=== PATIENT | female | born 1960 | race Caucasian/White ===

== ENCOUNTER → 2017-06-03 | Outpatient (CLI) | payer OTHER ==
[~2017-06-03] MED LIST: ASP81TEC PO; CHOL100011 PO; ESTR1TAB24 PO; HYDR-3583 PO; LISI1TAB PO; LVT.1T PO; OMEG1CAP51 PO
--- NOTE | 2017-06-03 19:00 | Diagnostic Imaging Report ---
INDICATION: Digital screening mammography was obtained with The current study was also evaluated with a Computer Aided Detection (CAD) system, as well as 3-D tomosynthesis. COMPARISON: 05/23/2016. FINDINGS: Scattered fibroglandular densities are again seen. There is no mass or suspicious calcification. IMPRESSION: Stable screening mammogram. No malignancy. Bi-RADS Category 1. ACR BI-RADS Category 1: Negative. Result letter will be mailed to the patient. Note: At least 10% of breast cancer is not imaged by mammography. Dictated on workstation # [id number]
== END ==
LOC: RAD 10:36
PROVIDERS: ATTEND Nurse Practitioner Family
DX: Z12.31 Encounter for screening mammogram for malignant neoplasm of breast (principal)
CPT/HCPCS: 77067

== ENCOUNTER → 2018-08-07 | Outpatient (CLI) | payer BC, OTHER ==
--- NOTE | 2018-08-07 19:18 | Diagnostic Imaging Report ---
INDICATION: Routine screening. Comparison is made with prior mammogram from 06/03/2017 and 05/23/2016. 2-D and 3-D bilateral screening mammography was performed with computer-aided detection (CAD) system. FINDINGS: Scattered fibronodular densities are identified bilaterally. There are benign calcifications bilaterally. Fibronodular parenchymal pattern appears to be stable. No dominant mass or malignant-appearing microcalcifications are seen. The axillae are unremarkable. IMPRESSION: No mammographic features suspicious for malignancy are identified. ACR BI-RADS Category 2: Benign findings. Result letter will be mailed to the patient. Note: At least 10% of breast cancer is not imaged by mammography. Dictated by: Dictated on workstation # [id number]
== END ==
LOC: RAD 07:17
PROVIDERS: ATTEND Family Medicine
DX: Z12.31 Encounter for screening mammogram for malignant neoplasm of breast (principal)
CPT/HCPCS: 77067

== ENCOUNTER → 2020-02-19 | Outpatient (CLI) | payer BC ==
--- NOTE | 2020-02-19 13:31 | Diagnostic Imaging Report ---
EXAM: Digital mammogram, bilateral screening. COMPARISON: This study was compared to the prior exams of 08/07/2018, 06/03/2017 and 05/23/2016. There are no current complaints. The current study was also evaluated with a Computer Aided Detection (CAD) system. FINDINGS: There are scattered fibroglandular densities in both breasts which could obscure a lesion. Overall, there does not appear to have been any significant change when compared to the prior exam. No primary or secondary sign of malignancy is noted. IMPRESSION: There is no radiographic evidence for malignancy. ACR category 1 ACR BI-RADS Category 1: Negative. Result letter will be mailed to the patient. Note: At least 10% of breast cancer is not imaged by mammography. Dictated by: Dictated on workstation # [id number]
== END ==
LOC: RAD 07:31
PROVIDERS: ATTEND Family Medicine
DX: Z12.31 Encounter for screening mammogram for malignant neoplasm of breast (principal)
CPT/HCPCS: 77063; 77067

== ENCOUNTER → 2021-04-28 | Outpatient (CLI) | payer BC ==
--- NOTE | 2021-04-28 13:57 | Diagnostic Imaging Report ---
INDICATION: Routine screening. Comparison is made with prior mammogram from 02/19/2020 and 08/07/2018. 2-D and 3-D bilateral screening mammography was performed with CAD. Both breasts show parenchymal heterogeneity and increased density, limiting the sensitivity of mammography. Patient reportedly complains of a lump in the upper and outer aspect of the right breast posterior depth. This is marked with a BB marker. There are scattered benign calcifications throughout both breasts. No discrete mass or malignant appearing microcalcifications are seen. Specifically, no mass at the area of palpable abnormality in the upper outer right breast is identified. Axillae are unremarkable. IMPRESSION: BI-RADS Category 2 No mammographic features suspicious for malignancy are identified. Continued close clinical and self breast exams recommended to confirm stability of the palpable abnormality. If this persists, ultrasound of this area could be performed. ACR BI-RADS Category 2: Benign findings. Result letter will be mailed to the patient. Note: At least 10% of breast cancer is not imaged by mammography. Dictated by: Dictated on workstation # [id number]
== END ==
LOC: RAD 04-27 07:45
PROVIDERS: ATTEND Family Medicine
DX: Z12.31 Encounter for screening mammogram for malignant neoplasm of breast (principal)
CPT/HCPCS: 77063; 77067

== ENCOUNTER 2023-08-22 05:41 | Outpatient (CLI) | payer BC ==
[~2023-08-22] VITALS: Ht 167.6 cm; Wt 95.5 kg
[2023-08-22] MEDS ORDERED: LISI10TA25 PO (14:35)
[2023-08-22] MEDS ORDERED: POTA10CA84 PO (14:35)
[2023-08-22] MEDS ORDERED: TIRZ7.5P SQ (14:35)
[2023-08-22] MEDS ORDERED: EZET10TA49 PO (14:35)
[2023-08-22] MEDS ORDERED: FRSM10B60 PO (14:35)
[2023-08-22] MEDS ORDERED: CITA10TA9 PO (14:36)
== END 2023-08-22 15:07 ==
LOC: PREOP 05:41
PROVIDERS: ATTEND Surgery
DX: Z01.818 Encounter for other preprocedural examination (principal)

== ENCOUNTER 2023-08-29 10:18 | Day surgery (SDC) | payer BC ==
[2023-08-29] VITALS (11 sets, daily range): BP systolic 130–151; BP diastolic 75–87
[~2023-08-29] VITALS: Ht 167.6 cm; Wt 95.5 kg
[~2023-08-29 10:18] MED LIST changes: +CITA10TA9 PO; +EZET10TA49 PO; +FRSM10B60 PO; +LISI10TA25 PO; +POTA10CA84 PO; +TIRZ7.5P SQ
[2023-08-29] MEDS ORDERED: ceFAZolin INJECTION 2,000 MG in NS (IVPB) 50 ML 50 ML IV ONE (10:45)
[2023-08-29] MEDS ORDERED: LACTATED RINGERS 1,000 ML 1,000 ML IV PRN (10:45)
[2023-08-29] MEDS ORDERED: NS (IVPB) 50 ML 50 ML ONE (11:21)
[2023-08-29] MEDS ORDERED: ceFAZolin INJECTION 2,000 MG ONE (11:21)
--- NOTE | 2023-08-29 11:41 | Progress Note-Pre Operative ---
Pre-Operative Progress Note Date H&P Reviewed: Aug 29, 2023 Time H&P Reviewed: 11:40 History & Physical: H&P Reviewed, Patient Examed, No changes noted Pre-Operative Diagnosis: right shoulder mass INGRID GREEN DO Aug 29, 2023 11:41
[2023-08-29] MEDS ORDERED: LIDOCAINE 2% w/EPI 1:100,000 20 ML VIAL ONE (12:27)
[2023-08-29] MEDS ORDERED: fentaNYL INJECTION 100 MCG/2 ML VIAL ONE (12:35)
[2023-08-29] MEDS ORDERED: ONDANSETRON INJECTION 4 MG/2 ML (SDV) ONE (12:35)
[2023-08-29] MEDS ORDERED: SEVOFLURANE (ULTANE) 15 ML INHAL SOLN ONE ×2 (12:35→13:58)
[2023-08-29] MEDS ORDERED: LIDOCAINE PF 2% 5 ML VIAL ONE (12:35)
[2023-08-29] MEDS ORDERED: proPOfol INJECTION 200 MG/20 ML VIAL IV ONE (12:35)
[2023-08-29] MEDS ORDERED: MIDAZOLAM INJ 2 MG/2 ML VIAL ONE (12:35)
[2023-08-29] MEDS ORDERED: ROCURONIUM 50 MG/5 ML VIAL IV ONE (13:25)
--- NOTE | 2023-08-29 13:55 | Anesthesia-General Post-Op ---
General Patient Condition Mental Status/LOC: Same as Preop Cardiovascular: Satisfactory Nausea/Vomiting: Absent Respiratory: Satisfactory Pain: Controlled Complications: Absent Post Op Complications Complications None Follow Up Care/Instructions Patient Instructions None needed. Anesthesia/Patient Condition Patient Condition Patient is doing well, no complaints, stable vital signs, no apparent adverse anesthesia problems. No complications reported per nursing. JOSE LIPSCOMB HUSBANDRY TECHNICIAN Aug 29, 2023 13:55
--- NOTE | 2023-08-30 17:14 | OPERATIVE REPORT ---
DATE OF SERVICE: 08/29/2023 PREOPERATIVE DIAGNOSIS: Right shoulder mass. POSTOPERATIVE DIAGNOSIS: Right shoulder mass. PROCEDURE: Excision of right shoulder mass, 9.5 x 7 cm. SURGEON: Ingrid Dumont DO ANESTHESIA: General. ESTIMATED BLOOD LOSS: Minimal. COMPLICATIONS: None. INDICATIONS: The patient is a 63-year-old female with a right shoulder mass. She understands risks and benefits of procedure and wished to proceed. Consent was signed in chart. DESCRIPTION OF PROCEDURE: The patient was taken to the operating suite, placed in left lateral recumbent position. Timeout was performed. Local anesthetic was infiltrated at the skin level. A #15 blade scalpel was used to make a skin incision over the palpable mass. A blunt and cautery dissection was used to excise the fatty tumor/mass out from the subcutaneous tissues. Once removed, it measured 9.5 x 7 cm. The wound was then irrigated with copious amounts of irrigation and hemostasis was achieved. The skin was then closed with yg. The patient tolerated the procedure well without complications, taken to recovery room in stable condition. Job ID: [id number] DocumentID: [id number] Dictated Date: 08/30/2023 09:58:58 [employer] Furnace Operator Date: 08/30/2023 17:12:00 Dictated By: INGRID DUMONT DO
== END 2023-08-29 16:00 | disposition home or self-care (01) ==
LOC: SDC 10:18
PROVIDERS: ATTEND Surgery
DX: M79.89 Other specified soft tissue disorders (principal); E66.9 Obesity, unspecified; Z68.34 Body mass index [BMI] 34.0-34.9, adult; Z87.891 Personal history of nicotine dependence
CPT/HCPCS: 82947; 87081